=== PATIENT | female | born 1985 | race African-American/Black ===

== ENCOUNTER 2017-03-09 14:13 | Emergency (ER) | payer BC, OTHER ==
[2017-03-09] MEDS ORDERED: ACETAMINOPHEN 325 MG TABLET PO ONE (15:33)
--- NOTE | 2017-03-09 15:38 | ER Document Report ---
ED Medical Screen (RME) - General Chief Complaint: Fever Stated Complaint: FEVER/CHILLS/NUMBNESS OF FINGERS Mode of Arrival: Ambulatory Information source: Patient Notes: 32-year-old female presents with one week duration of back pain with 4 day duration the fevers. Patient admits to mild nausea denies any vomiting Patient denies IV drug use denies any urinary complaints denies any cauda equina concerns I have greeted and performed a rapid initial assessment of this patient. A comprehensive ED assessment and evaluation of the patient, analysis of test results and completion of the medical decision making process will be conducted by additional ED providers. PHYSICAL EXAMINATION: GENERAL: Well-appearing, well-nourished and in no acute distress. HEAD: Atraumatic, normocephalic. EYES: Pupils equal round extraocular movements intact, conjunctiva are normal. ENT: Nares patent NECK: Normal range of motion LUNGS: No respiratory distress Musculoskeletal: Normal range of motion NEUROLOGICAL: Normal speech, normal gait. PSYCH: Normal mood, normal affect. SKIN: Warm, Dry, normal turgor, no rashes or lesions noted. TRAVEL OUTSIDE OF THE [place] IN LAST 30 DAYS: No - Related Data Allergies/Adverse Reactions: acetaminophen [From Vicodin] Allergy (Verified 03/04/15 22:04) hydrocodone bitartrate [From Vicodin] Allergy (Verified 03/04/15 22:04) lorazepam [From Ativan] Allergy (Verified 03/04/15 22:04) Penicillins Allergy (Verified 03/04/15 22:04) Past Medical History - Past Medical History Cardiac Medical History: Reports: Hx Hypertension Denies: Hx Coronary Artery Disease, Hx Heart Attack Pulmonary Medical History: Denies: Hx Asthma, Hx Bronchitis, Hx COPD, Hx Pneumonia Neurological Medical History: Reports: Hx Cerebrovascular Accident - 2012 from brain aneurysm, Hx Migraine, Hx Seizures - episode x1 with CVA Renal/ Medical History: Denies: Hx Peritoneal Dialysis Musculoskeltal Medical History: Denies Hx Arthritis Past Surgical History: Reports: Hx Herniorrhaphy - Immunizations Hx Diphtheria, Pertussis, Tetanus Vaccination: Yes Physical Exam - Vital signs Vitals: Temp Pulse Resp 101.4 F H 116 H 16 03/09/17 15:08 03/09/17 15:08 03/09/17 15:08 Course - Vital Signs Vital signs: Temp Pulse Resp BP Pulse Ox 101.4 F H 116 H 16 03/09/17 15:08 03/09/17 15:08 03/09/17 15:08
[2017-03-09 16:19] LABS: ABSOLUTE LYMPHOCYTES (AUTO) 1.1 10^3/uL (0.5-4.7); ABSOLUTE MONOCYTES (AUTO) 1.2 10^3/uL (0.1-1.4); BASOPHILS % (AUTO) 0.4 % (0-2); EOSINOPHILS % (AUTO) 0.2 % (0-6); HEMATOCRIT 36.9 % (36.0-47.0); HEMOGLOBIN 12.2 g/dL (12.0-15.5); HGB HCT DIFFERENCE -0.3; LYMPHOCYTES % (AUTO) 10.3 % (13-45); MEAN CORPUSCULAR HEMOGLOBIN 28.7 pg (27.0-33.4); MEAN CORPUSCULAR HGB CONC 32.9 g/dL (32.0-36.0); MEAN CORPUSCULAR VOLUME 87 fl (80-97); RED BLOOD COUNT 4.24 10^6/uL (3.72-5.28); RED CELL DISTRIBUTION WIDTH 13.9 % (11.5-14.0); SEGMENTED NEUTROPHILS % (AUTO) 77.1 % (42-78); WHITE BLOOD COUNT 10.3 10^3/uL (4.0-10.5)
[2017-03-09 16:21] LABS: VENOUS BLOOD BASE EXCESS 1.4 mmol/L; VENOUS BLOOD HCO3 25.9 mmol/L (20-32); VENOUS BLOOD PCO2 40.5 mmHg (35-63); VENOUS BLOOD PH 7.42 (7.30-7.42)
[2017-03-09 16:24] LABS: APPEARANCE,URINE SLIGHTLY-CLOUDY; BILIRUBIN,URINE NEGATIVE (NEGATIVE); GLUCOSE, URINE NEGATIVE (NEGATIVE); KETONES,URINE NEGATIVE (NEGATIVE); LEUKOCYTE ESTERASE,URINE SMALL (NEGATIVE); NITRITE,URINE NEGATIVE (NEGATIVE); PROTEIN,URINE NEGATIVE (NEGATIVE); URINE SPECIFIC GRAVITY 1.009; UROBILINOGEN,URINE NEGATIVE mg/dL (<2.0)
[2017-03-09 16:28] LABS: PROTHROMBIN TIME 13.1 SEC (11.4-15.4)
[2017-03-09 16:37] LABS: ALANINE AMINOTRANSFERASE 20 U/L (9-52); ALBUMIN 4.2 g/dL (3.5-5.0); ALKALINE PHOSPHATASE 68 U/L (38-126); ANION GAP 14 (5-19); ASPARTATE AMINO TRANSFERASE 12 U/L (14-36); BILIRUBIN,DIRECT 0.3 mg/dL (0.0-0.4); BILIRUBIN,TOTAL 0.5 mg/dL (0.2-1.3); BLOOD UREA NITROGEN 7 mg/dL (7-20); CALCIUM 9.5 mg/dL (8.4-10.2); CARBON DIOXIDE 25 mmol/L (22-30); CHLORIDE 100 mmol/L (98-107); CREATININE RESULT 0.68 mg/dL (0.52-1.25); GLUCOSE 104 mg/dL (75-110); POTASSIUM 3.8 mmol/L (3.6-5.0); TOTAL PROTEIN 7.7 g/dL (6.3-8.2)
--- NOTE | 2017-03-09 16:41 | ER Document Report ---
ED General - General Mode of Arrival: Ambulatory Information source: Patient TRAVEL OUTSIDE OF THE [place] IN LAST 30 DAYS: No - HPI Patient complains to provider of: Bilateral flank pain Onset: Other - 1 week ago Associated symptoms: Other - see notes above <ÁNGELA GARZA - Last Filed: 03/09/17 16:50> <TIAN ROGERS - Last Filed: 03/09/17 17:48> - General Chief Complaint: Fever Stated Complaint: FEVER/CHILLS/NUMBNESS OF FINGERS Notes: 32 year old female with history of CVA (secondary to brain aneurysm) hypertension, and anxiety presents to the ED complaining of bilateral flank pain that started 1 week ago. Patient additionally reports generalized abdominal pressure, decreased urine output, fever, cold and hot flashes, headache, and sore throat, but denies cough or hematuria. Patient denies being on any blood thinning medication or having a cholecystectomy. Patient has a history of abdominal surgery for mesh insertion secondary to a hernia. (ÁNGELA GARZA) - Related Data Allergies/Adverse Reactions: acetaminophen [From Vicodin] Allergy (Verified 03/09/17 16:27) hydrocodone bitartrate [From Vicodin] Allergy (Verified 03/09/17 16:27) lorazepam [From Ativan] Allergy (Verified 03/09/17 16:27) Penicillins Allergy (Verified 03/09/17 16:27) Past Medical History - General Information source: Patient - Social History Smoking Status: Current Every Day Smoker Chew tobacco use (# tins/day): No Frequency of alcohol use: Occasional Drug Abuse: None Family History: Reviewed & Not Pertinent Patient has suicidal ideation: No Patient has homicidal ideation: No - Past Medical History Cardiac Medical History: Reports: Hx Hypertension Neurological Medical History: Reports: Hx Cerebrovascular Accident - 2012 from brain aneurysm, Hx Migraine, Hx Seizures - episode x1 with CVA Renal/ Medical History: Denies: Hx Peritoneal Dialysis Psychiatric Medical History: Reports: Hx Anxiety Past Surgical History: Reports: Hx Herniorrhaphy, Hx Neurologic Surgery - Immunizations Hx Diphtheria, Pertussis, Tetanus Vaccination: Yes <ÁNGELA GARZA - Last Filed: 03/09/17 16:50> Review of Systems - Review of Systems Constitutional: See HPI, Chills, Fever EENT: See HPI, Throat pain Cardiovascular: No symptoms reported Respiratory: No symptoms reported. denies: Cough Gastrointestinal: See HPI, Abdominal pain - generalized Genitourinary: See HPI, Dysuria - decreased urine output, Flank pain - bilateral. denies: Hematuria Female Genitourinary: No symptoms reported Musculoskeletal: No symptoms reported Skin: No symptoms reported Hematologic/Lymphatic: No symptoms reported Neurological/Psychological: See HPI, Headaches -: Yes All other systems reviewed and negative <ÁNGELA GARZA - Last Filed: 03/09/17 16:50> Physical Exam - Vital signs Interpretation: Tachycardic - General General appearance: Alert In distress: None - HEENT Head: Normocephalic, Atraumatic Eyes: Normal Extraocular movements intact: Yes Pupils: PERRL - Respiratory Respiratory status: No respiratory distress Breath sounds: Normal - Cardiovascular Rhythm: Regular, Tachycardia Heart sounds: Normal auscultation - Abdominal Inspection: Normal Distension: No distension Tenderness: Nontender - Back Back: CVA tenderness - bilateral. No: Normal - Extremities General upper extremity: Normal inspection, Normal ROM General lower extremity: Normal inspection, Normal ROM - Neurological Neuro grossly intact: Yes Cognition: Normal Orientation: AAOx4 [place] Coma Scale Eye Opening: Spontaneous [place] Coma Scale Verbal: Oriented [place] Coma Scale Motor: Obeys Commands Rosy Coma Scale Total: 15 Speech: Normal - Psychological Associated symptoms: Normal affect, Normal mood - Skin Skin Temperature: Warm Skin Moisture: Dry Skin Color: Normal <ÁNGELA GARZA - Last Filed: 03/09/17 16:50> Course - Laboratory Result Diagrams: 03/09/17 15:40 03/09/17 15:40 <ÁNGELA GARZA - Last Filed: 03/09/17 16:50> - Laboratory Result Diagrams: 03/09/17 15:40 03/09/17 15:40 - Diagnostic Test Radiology reviewed: Image reviewed, Reports reviewed - No active disease - EKG Interpretation by Me EKG shows normal: Sinus rhythm Rate: Tachycardia - Heart rate 106, no evidence of ischemia, borderline left atrial enlargement <TIAN ROGERS - Last Filed: 03/09/17 17:48> - Re-evaluation Re-evalutation: 03/09/17 17:44 Patient is improved. Initially states that she was not allergic to penicillins but I was able to verify this on a February she has. She does states she can take Keflex and we will prescribe this in attempt to cover both the strep in the urine. Urine culture is pending at this point. Return to emergency department instructions are discussed and voiced as understood (TIAN ROGERS) - Vital Signs Vital signs: Temp Pulse Resp BP Pulse Ox 101.4 F H 116 H 16 03/09/17 15:08 03/09/17 15:08 03/09/17 15:08 - Laboratory Laboratory results interpreted by me: 03/09/17 03/09/17 03/09/17 15:40 15:40 15:40 Lymphocytes % 10.3 L AST 12 L Urine Blood MODERATE H Ur Leukocyte Esterase SMALL H Discharge <ÁNGELA GARZA - Last Filed: 03/09/17 16:50> <TIAN ROGERS - Last Filed: 03/09/17 17:48> - Discharge Clinical Impression: Strep pharyngitis, UTI (urinary tract infection) Condition: Good Disposition: HOME, SELF-CARE Additional Instructions: Please follow up with your primary care physician in the next 2-3 days. Return for worsening or concern. A urine culture will be completed in the next 2 days and we will contact you if a change in your treatment is needed. Prescriptions: Cephalexin Monohydrate [Keflex 500 mg Capsule] 500 mg PO QID #20 capsule Scribe Attestation: 03/09/17 17:48 I personally performed the services described in the documentation, reviewed and edited the documentation which was dictated to the scribe in my presence, and it accurately records my words and actions. (TIAN ROGERS) Scribe Documentation - Scribe Written by Gómez:: Gómez Padron, 03/09/2017 1701 acting as scribe for :: Jacquelin <ÁNGELA GARZA - Last Filed: 03/09/17 16:50>
[2017-03-09] MEDS ORDERED: CIPROFLOXACIN HCL 500 MG TABLET PO ONE (16:48)
[2017-03-09] MEDS ORDERED: KETOROLAC TROMETHAMINE INJ/PF 30 MG/1 ML SDV IV ONE (16:48)
[2017-03-09 18:11] VITALS: BP 147/112
--- NOTE | 2017-03-09 21:37 | EKG REPORT ---
SEVERITY:- ABNORMAL ECG - SINUS TACHYCARDIA LEFT ATRIAL ABNORMALITY : Confirmed by: Alberta Morales 09-Mar-2017 21:35:33
== END 2017-03-09 18:08 | disposition home or self-care (01) ==
LOC: ER 14:13
DX: J02.0 Streptococcal pharyngitis (principal); N39.0 Urinary tract infection, site not specified; R50.9 Fever, unspecified; R10.9 Unspecified abdominal pain; R51 Headache; R20.0 Anesthesia of skin; R10.84 Generalized abdominal pain; F17.200 Nicotine dependence, unspecified, uncomplicated; I10 Essential (primary) hypertension; Z90.49 Acquired absence of other specified parts of digestive tract; Z86.73 Personal history of transient ischemic attack (TIA), and cerebral infarction without residual deficits; Z88.6 Allergy status to analgesic agent; Z88.0 Allergy status to penicillin
CPT/HCPCS: 93005; 99284; 96374; 36415; 87040; 87086; 87880; 82962; 84703; 85025; 85610; 87088; 80053; 81001; 87186; 82803; 83605; 87804; 71020; 93010; J1885